=== PATIENT | female | born 1975 | race Caucasian/White ===

== ENCOUNTER 2017-07-08 19:47 | Emergency (ER) | payer BC ==
[~2017-07-08] VITALS: Ht 162.6 cm; Wt 93.0 kg
[2017-07-08] MEDS ORDERED: NORCO 5-325 TA1 EACH PO (22:14)
[2017-07-08] MEDS ORDERED: CRUTCH1 EACH MISC (22:21)
== END 2017-07-08 22:32 | disposition home or self-care (01) ==
LOC: ED 19:47
DX: S83.92XA Sprain of unspecified site of left knee, initial encounter (principal); W01.0XXA Fall on same level from slipping, tripping and stumbling without subsequent striking against object, initial encounter
CPT/HCPCS: 73560; 99283